=== PATIENT | female | born 1970 | race Caucasian/White ===

== ENCOUNTER 2017-01-10 17:48 | Emergency (ER) | payer OTHER ==
[2017-01-10 19:39] VITALS: BP 109/70
== END 2017-01-10 19:39 | disposition home or self-care (01) ==
LOC: ED 17:48
DX: R56.9 Unspecified convulsions (principal); G91.9 Hydrocephalus, unspecified; Z98.2 Presence of cerebrospinal fluid drainage device

== ENCOUNTER 2017-04-11 15:29 | Emergency (ER) | payer OTHER ==
[2017-04-11 16:13] LABS: BASOPHIL % 0.8 % (0-2); PLATELET COUNT 241 x10^3mcL (130-400); RED CELL DISTRIBUTION WIDTH 12.5 % (11.5-14.5)
[2017-04-11 16:21] LABS: CALCIUM 9.2 mg/dL (8.5-10.1); CARBON DIOXIDE 28.6 mmol/L (21-32); CHLORIDE SERUM 104 mmol/L (98-107); CREATININE SERUM 0.8 mg/dL (0.6-1.0); GFR1 > 60 mL/min; GLUCOSE SERUM 99 mg/dL (74-106); POTASSIUM SERUM 4.7 mmol/L (3.5-5.1); SODIUM SERUM 141 mmol/L (136-145)
[2017-04-11 16:26] LABS: ALBUMIN 4.1 g/dL (3.4-5.0); ALKALINE PHOSPHATASE 71 U/L (46-116); ALT/SGPT 25 U/L (14-59); AST/SGOT 17 U/L (15-37); BILIRUBIN TOTAL 0.6 mg/dL (0.20-1.00)
[2017-04-11 16:29] LABS: TOTAL PROTEIN, SERUM 8.3 g/dL (6.4-8.2)
[2017-04-11 18:02] VITALS: BP 111/71
== END 2017-04-11 18:02 | disposition home or self-care (01) ==
LOC: ED 15:29
PROVIDERS: Emergency Medicine
DX: R56.9 Unspecified convulsions (principal)
CPT/HCPCS: 36415

== ENCOUNTER 2018-01-26 19:47 | Emergency (ER) | payer OTHER ==
[~2018-01-26] VITALS: Ht 170.2 cm; Wt 77.1 kg
[2018-01-26 19:55] VITALS: Ht 170.2 cm; Wt 77.1 kg
[2018-01-26 21:06] LABS: BASOPHIL % 0.3 % (0-2); PLATELET COUNT 303 x10^3mcL (130-400); RED CELL DISTRIBUTION WIDTH 13.2 % (11.5-14.5)
[2018-01-26 21:11] LABS: UA SPECIFIC GRAVITY >=1.030 (1.005-1.035); microscopic required? YES; urine erythrocyte TRACE (NEGATIVE)
[2018-01-26 21:15] LABS: CALCIUM 9.4 mg/dL (8.5-10.1); CARBON DIOXIDE 29.2 mmol/L (21-32); CHLORIDE SERUM 104 mmol/L (98-107); CREATININE SERUM 0.7 mg/dL (0.6-1.0); GFR1 > 60 mL/min; GLUCOSE SERUM 90 mg/dL (74-106); POTASSIUM SERUM 3.6 mmol/L (3.5-5.1); SODIUM SERUM 139 mmol/L (136-145)
[2018-01-26 21:20] LABS: ALBUMIN 3.9 g/dL (3.4-5.0); ALKALINE PHOSPHATASE 133 U/L (46-116); ALT/SGPT 28 U/L (14-59); AST/SGOT 19 U/L (15-37); BILIRUBIN TOTAL 0.5 mg/dL (0.20-1.00)
[2018-01-26 21:22] LABS: TOTAL PROTEIN, SERUM 8.4 g/dL (6.4-8.2)
[2018-01-26 22:20] LABS: AMPHETAMINE QUAL UR NONE DETECTED (See below)
[2018-01-26 23:31] VITALS: BP 128/69
== END 2018-01-26 23:31 | disposition home or self-care (01) ==
LOC: ED 19:47
PROVIDERS: Emergency Medicine
DX: R56.9 Unspecified convulsions (principal); G91.9 Hydrocephalus, unspecified; Z98.2 Presence of cerebrospinal fluid drainage device
CPT/HCPCS: 36415; G0480

== ENCOUNTER 2018-01-27 14:25 | Inpatient (IN) | payer OTHER ==
[~2018-01-27] VITALS: Ht 170.2 cm; Wt 94.0 kg
[2018-01-27 14:29] VITALS: Ht 170.2 cm; Wt 94.0 kg
[2018-01-27 15:05] LABS: BASOPHIL % 0.1 % (0-2); PLATELET COUNT 265 x10^3mcL (130-400); RED CELL DISTRIBUTION WIDTH 13.3 % (11.5-14.5)
[2018-01-27 15:06] LABS: microscopic required? YES; urine erythrocyte TRACE (NEGATIVE)
[2018-01-27 15:16] LABS: CALCIUM 8.5 mg/dL (8.5-10.1); CARBON DIOXIDE 22.3 mmol/L (21-32); CHLORIDE SERUM 106 mmol/L (98-107); CREATININE SERUM 0.7 mg/dL (0.6-1.0); GFR1 > 60 mL/min; GLUCOSE SERUM 140 mg/dL (74-106); POTASSIUM SERUM 3.6 mmol/L (3.5-5.1); SODIUM SERUM 139 mmol/L (136-145)
[2018-01-27 15:21] LABS: AMPHETAMINE QUAL UR NONE DETECTED (See below)
[2018-01-27 15:21] LABS: ALBUMIN 3.5 g/dL (3.4-5.0); ALKALINE PHOSPHATASE 116 U/L (46-116); ALT/SGPT 25 U/L (14-59); AST/SGOT 16 U/L (15-37); BILIRUBIN TOTAL 0.6 mg/dL (0.20-1.00); TOTAL PROTEIN, SERUM 7.4 g/dL (6.4-8.2)
[2018-01-28] MEDS ORDERED: KEPPRA500 MG PO (18:27)
[2018-01-29 05:09] LABS: BASOPHIL % 0.2 % (0-2); CALCIUM 9.4 mg/dL (8.5-10.1); CARBON DIOXIDE 27.6 mmol/L (21-32); CHLORIDE SERUM 104 mmol/L (98-107); CREATININE SERUM 0.7 mg/dL (0.6-1.0); GFR1 > 60 mL/min; GLUCOSE SERUM 108 mg/dL (74-106); PHOSPHOROUS 4.1 mg/dL (2.5-4.9); PLATELET COUNT 286 x10^3mcL (130-400); POTASSIUM SERUM 4.5 mmol/L (3.5-5.1); SODIUM SERUM 140 mmol/L (136-145)
[2018-01-29 08:10] VITALS: BP 133/66
[2018-01-29 08:47] VITALS: BP 113/74
[2018-01-29 13:44] VITALS: BP 116/77
[2018-01-29 17:27] VITALS: BP 103/82
[2018-01-29 20:13] VITALS: BP 110/69
[2018-01-30 05:42] VITALS: BP 107/54
[2018-01-30 06:58] LABS: CALCIUM 8.8 mg/dL (8.5-10.1); CARBON DIOXIDE 26.1 mmol/L (21-32); CHLORIDE SERUM 105 mmol/L (98-107); CREATININE SERUM 0.8 mg/dL (0.6-1.0); GFR1 > 60 mL/min; GLUCOSE SERUM 91 mg/dL (74-106); MAGNESIUM 2.1 mg/dL (1.8-2.4); PHOSPHOROUS 4.8 mg/dL (2.5-4.9); SODIUM SERUM 140 mmol/L (136-145)
[2018-01-30 07:03] LABS: BASOPHIL % 0.3 % (0-2); PLATELET COUNT 281 x10^3mcL (130-400); RED CELL DISTRIBUTION WIDTH 13.2 % (11.5-14.5)
[2018-01-30 08:57] VITALS: BP 111/72
[2018-01-30 14:23] VITALS: BP 111/72
== END 2018-01-30 17:17 | disposition home or self-care (01) | DRG 53 ==
LOC: ED 14:25 → DU 01-28 10:59
PROVIDERS: Internal Medicine; Specialist
DX: G40.909 Epilepsy, unspecified, not intractable, without status epilepticus (principal); R45.851 Suicidal ideations; F20.9 Schizophrenia, unspecified; S00.531A Contusion of lip, initial encounter; X58.XXXA Exposure to other specified factors, initial encounter; S10.81XA Abrasion of other specified part of neck, initial encounter; Z68.29 Body mass index [BMI] 29.0-29.9, adult; Z98.2 Presence of cerebrospinal fluid drainage device; Y93.89 Activity, other specified; Y92.89 Other specified places as the place of occurrence of the external cause; Y99.8 Other external cause status
CPT/HCPCS: G0480

== ENCOUNTER 2018-05-10 18:25 | Inpatient (IN) | payer OTHER ==
[~2018-05-10] VITALS: Ht 170.2 cm; Wt 96.4 kg
[~2018-05-10 18:25] MED LIST: KEPPRA500 MG PO
[2018-05-10 18:35] VITALS: Ht 170.2 cm; Wt 96.4 kg
[2018-05-10 19:28] LABS: BASOPHIL % 0.2 % (0-2); PLATELET COUNT 389 x10^3mcL (130-400); RED CELL DISTRIBUTION WIDTH 13.1 % (11.5-14.5)
[2018-05-10 19:38] LABS: CALCIUM 8.4 mg/dL (8.5-10.1); CARBON DIOXIDE 29.1 mmol/L (21-32); CHLORIDE SERUM 102 mmol/L (98-107); CREATININE SERUM 0.8 mg/dL (0.6-1.0); GFR1 > 60 mL/min; GLUCOSE SERUM 183 mg/dL (74-106); POTASSIUM SERUM 3.5 mmol/L (3.5-5.1); SODIUM SERUM 134 mmol/L (136-145)
[2018-05-10 19:43] LABS: ALBUMIN 3.3 g/dL (3.4-5.0); ALKALINE PHOSPHATASE 100 U/L (46-116); ALT/SGPT 20 U/L (14-59); AST/SGOT 18 U/L (15-37); BILIRUBIN TOTAL 0.52 mg/dL (0.20-1.00); TOTAL PROTEIN, SERUM 7.4 g/dL (6.4-8.2)
[2018-05-10 19:56] LABS: AMPHETAMINE QUAL UR NONE DETECTED (See below)
[2018-05-11 21:00] VITALS: BP 139/81
[2018-05-12 03:16] VITALS: BP 139/81
[2018-05-12 06:09] VITALS: BP 122/72
[2018-05-12 08:30] VITALS: BP 127/78
[2018-05-12 17:22] VITALS: BP 104/57
[2018-05-12 20:16] VITALS: BP 107/68
[2018-05-13 04:53] VITALS: BP 111/67
[2018-05-13 08:36] VITALS: BP 107/69
[2018-05-13 16:56] VITALS: BP 97/61
[2018-05-13 21:02] VITALS: BP 115/83
[2018-05-14 06:42] VITALS: BP 108/64
[2018-05-14 10:15] VITALS: BP 98/68
[2018-05-14 17:04] VITALS: BP 117/69
[2018-05-14 21:01] VITALS: BP 123/62
[2018-05-15 05:49] VITALS: BP 108/71
[2018-05-15 07:21] VITALS: BP 114/64
[2018-05-15 13:07] VITALS: BP 119/66
[2018-05-15 16:13] VITALS: BP 111/62
[2018-05-15 21:15] VITALS: BP 95/69
[2018-05-16 05:36] VITALS: BP 99/70
[2018-05-16 06:46] LABS: BASOPHIL % 0.3 % (0-2); PLATELET COUNT 326 x10^3mcL (130-400)
[2018-05-16 07:12] LABS: CALCIUM 8.3 mg/dL (8.5-10.1); CHLORIDE SERUM 104 mmol/L (98-107); CREATININE SERUM 0.7 mg/dL (0.6-1.0); GFR1 > 60 mL/min; GLUCOSE SERUM 92 mg/dL (74-106); PHOSPHOROUS 4.3 mg/dL (2.5-4.9); POTASSIUM SERUM 4.4 mmol/L (3.5-5.1); SODIUM SERUM 138 mmol/L (136-145)
[2018-05-16 09:44] VITALS: BP 107/76
[2018-05-16 17:26] VITALS: BP 118/61
[2018-05-16 20:26] VITALS: BP 102/65
[2018-05-17 05:36] VITALS: BP 102/64
[2018-05-17 09:00] VITALS: BP 114/84
[2018-05-17 17:00] VITALS: BP 135/73
[2018-05-17 20:39] VITALS: BP 143/96
[2018-05-18 04:57] VITALS: BP 140/87
[2018-05-18 08:06] VITALS: BP 119/78
[2018-05-18 16:04] VITALS: BP 135/75
[2018-05-18 20:58] VITALS: BP 104/56
[2018-05-19 05:23] VITALS: BP 97/66
[2018-05-19 08:28] VITALS: BP 104/70
[2018-05-19 16:39] VITALS: BP 109/68
[2018-05-19 21:17] VITALS: BP 164/62
[2018-05-20 05:45] VITALS: BP 98/60
[2018-05-20 07:53] VITALS: BP 118/60
[2018-05-20 12:09] VITALS: BP 120/71
[2018-05-20 17:07] VITALS: BP 123/57
[2018-05-20 20:32] VITALS: BP 120/70
[2018-05-21 05:55] VITALS: BP 124/68
[2018-05-21 06:45] LABS: CALCIUM 8.6 mg/dL (8.5-10.1); CARBON DIOXIDE 26.4 mmol/L (21-32); CHLORIDE SERUM 104 mmol/L (98-107); CREATININE SERUM 0.7 mg/dL (0.6-1.0); GFR1 > 60 mL/min; GLUCOSE SERUM 92 mg/dL (74-106); MAGNESIUM 1.9 mg/dL (1.8-2.4); POTASSIUM SERUM 4.2 mmol/L (3.5-5.1); SODIUM SERUM 138 mmol/L (136-145)
[2018-05-21 07:01] LABS: BASOPHIL % 0.2 % (0-2); PLATELET COUNT 281 x10^3mcL (130-400); RED CELL DISTRIBUTION WIDTH 13.1 % (11.5-14.5)
[2018-05-21 08:50] VITALS: BP 98/62
[2018-05-21 17:38] VITALS: BP 111/73
[2018-05-21 20:46] VITALS: BP 125/75
[2018-05-22 05:27] VITALS: BP 108/58
[2018-05-22 08:55] VITALS: BP 113/73
[2018-05-22 17:17] VITALS: BP 129/70
[2018-05-22 21:29] VITALS: BP 90/61
[2018-05-23 05:08] VITALS: BP 105/61
[2018-05-23 10:17] VITALS: BP 121/60
[2018-05-23 12:33] VITALS: BP 121/60
== END 2018-05-23 15:45 | disposition home or self-care (01) | DRG 385 ==
LOC: ED 18:25 → MU 05-11 14:30
PROVIDERS: Emergency Medicine; Internal Medicine; ADMIT Family Medicine
DX: B85.0 Pediculosis due to Pediculus humanus capitis (principal); R45.851 Suicidal ideations; E44.1 Mild protein-calorie malnutrition; F32.9 Major depressive disorder, single episode, unspecified; G40.409 Other generalized epilepsy and epileptic syndromes, not intractable, without status epilepticus; E83.51 Hypocalcemia; Z68.33 Body mass index [BMI] 33.0-33.9, adult; Z98.2 Presence of cerebrospinal fluid drainage device
CPT/HCPCS: G0480; Q0163

== ENCOUNTER 2018-06-17 19:57 | Emergency (ER) | payer OTHER | END 2018-06-17 22:22 | disposition home or self-care (01) | LOC: ED 19:57 ==

== ENCOUNTER 2018-08-14 12:30 | Emergency (ER) | payer OTHER ==
[~2018-08-14] VITALS: Ht 170.2 cm; Wt 81.6 kg
[2018-08-14 12:30] VITALS: Ht 170.2 cm; Wt 81.6 kg
[2018-08-14 14:21] LABS: BASOPHIL % 0.7 % (0-2); PLATELET COUNT 304 x10^3mcL (130-400); RED CELL DISTRIBUTION WIDTH 14.1 % (11.5-14.5)
[2018-08-14 14:30] LABS: CALCIUM 8.9 mg/dL (8.5-10.1); CARBON DIOXIDE 27.4 mmol/L (21-32); CHLORIDE SERUM 106 mmol/L (98-107); CREATININE SERUM 0.7 mg/dL (0.6-1.0); GFR1 > 60 mL/min; GLUCOSE SERUM 108 mg/dL (74-106); POTASSIUM SERUM 3.8 mmol/L (3.5-5.1); SODIUM SERUM 141 mmol/L (136-145)
[2018-08-14 14:43] LABS: ALBUMIN 4.1 g/dL (3.4-5.0); ALKALINE PHOSPHATASE 102 U/L (46-116); ALT/SGPT 23 U/L (14-59); AST/SGOT 18 U/L (15-37); BILIRUBIN TOTAL 0.9 mg/dL (0.20-1.00); TOTAL PROTEIN, SERUM 8.2 g/dL (6.4-8.2)
[2018-08-14 15:47] VITALS: BP 122/88
== END 2018-08-14 15:48 | disposition home or self-care (01) ==
LOC: ED 12:30
PROVIDERS: Emergency Medicine
DX: R56.9 Unspecified convulsions (principal); F32.9 Major depressive disorder, single episode, unspecified
CPT/HCPCS: 36415; J7030

== ENCOUNTER 2018-12-30 18:59 | Emergency (ER) | payer OTHER ==
[~2018-12-30] VITALS: Ht 170.2 cm; Wt 68.0 kg
[2018-12-30 19:06] VITALS: Ht 170.2 cm; Wt 68.0 kg
[2018-12-30 20:54] VITALS: BP 111/68
== END 2018-12-30 20:54 | disposition home or self-care (01) ==
LOC: ED 18:59
DX: G40.909 Epilepsy, unspecified, not intractable, without status epilepticus (principal); F32.9 Major depressive disorder, single episode, unspecified
CPT/HCPCS: J1953

== ENCOUNTER 2019-02-13 21:47 | Emergency (ER) | payer OTHER ==
[~2019-02-13] VITALS: Ht 170.2 cm; Wt 104.3 kg
[2019-02-13 22:14] VITALS: Ht 170.2 cm; Wt 104.3 kg
[2019-02-13 23:35] LABS: CALCIUM 8.8 mg/dL (8.5-10.1); CARBON DIOXIDE 30.5 mmol/L (21-32); CHLORIDE SERUM 106 mmol/L (98-107); CREATININE SERUM 0.8 mg/dL (0.6-1.0); GFR1 > 60 mL/min; GLUCOSE SERUM 95 mg/dL (74-106); POTASSIUM SERUM 3.6 mmol/L (3.5-5.1); SODIUM SERUM 141 mmol/L (136-145)
[2019-02-13 23:41] LABS: ALBUMIN 4.1 g/dL (3.4-5.0); ALKALINE PHOSPHATASE 77 U/L (46-116); ALT/SGPT 14 U/L (14-59); AST/SGOT 13 U/L (15-37); BILIRUBIN TOTAL 0.6 mg/dL (0.20-1.00); TOTAL PROTEIN, SERUM 7.5 g/dL (6.4-8.2)
[2019-02-14 00:58] VITALS: BP 105/71
== END 2019-02-14 00:58 | disposition home or self-care (01) ==
LOC: ED 21:47
PROVIDERS: Emergency Medicine
DX: G40.909 Epilepsy, unspecified, not intractable, without status epilepticus (principal); F32.9 Major depressive disorder, single episode, unspecified; Z98.890 Other specified postprocedural states
CPT/HCPCS: J1953; J1956

== ENCOUNTER 2019-02-20 19:38 | Emergency (ER) | payer OTHER ==
[~2019-02-20] VITALS: Ht 170.2 cm; Wt 65.8 kg
[2019-02-20 19:52] VITALS: Ht 170.2 cm; Wt 65.8 kg
[2019-02-20 21:02] LABS: CALCIUM 8.3 mg/dL (8.5-10.1); CARBON DIOXIDE 28.3 mmol/L (21-32); CHLORIDE SERUM 107 mmol/L (98-107); CREATININE SERUM 0.6 mg/dL (0.6-1.0); GFR1 > 60 mL/min; GLUCOSE SERUM 86 mg/dL (74-106); SODIUM SERUM 143 mmol/L (136-145)
[2019-02-20 21:07] LABS: ALBUMIN 3.8 g/dL (3.4-5.0); ALKALINE PHOSPHATASE 78 U/L (46-116); ALT/SGPT 16 U/L (14-59); AST/SGOT 16 U/L (15-37); BILIRUBIN TOTAL 0.5 mg/dL (0.20-1.00)
[2019-02-20 21:39] VITALS: BP 119/69
== END 2019-02-20 21:58 | disposition home or self-care (01) ==
LOC: ED 19:38
PROVIDERS: Specialist
DX: G40.901 Epilepsy, unspecified, not intractable, with status epilepticus (principal); F32.9 Major depressive disorder, single episode, unspecified
CPT/HCPCS: 36415

== ENCOUNTER 2019-11-08 10:58 | Emergency (ER) | payer OTHER ==
[~2019-11-08] VITALS: Ht 170.2 cm; Wt 74.8 kg
[2019-11-08 11:07] VITALS: Ht 170.2 cm; Wt 74.8 kg
[2019-11-08 14:36] VITALS: BP 102/58
== END 2019-11-08 14:36 | disposition home or self-care (01) ==
LOC: ED 10:58
DX: R56.9 Unspecified convulsions (principal)
CPT/HCPCS: J1953